=== PATIENT | male | born 1985 | race Two or more races ===

== ENCOUNTER 2019-12-10 15:08 | Emergency (ER) | payer SELFPAY ==
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
[2019-12-10 17:12] VITALS: BP 116/83
[2019-12-10 18:21] LABS: HIV 4th Generation Nonreactive (Nonreactive)
== END 2019-12-10 17:10 | disposition home or self-care (01) ==
LOC: ED 15:08
DX: S83.91XA Sprain of unspecified site of right knee, initial encounter (principal); V49.9XXA Car occupant (driver) (passenger) injured in unspecified traffic accident, initial encounter; Y92.9 Unspecified place or not applicable
CPT/HCPCS: 36415; 87389; 99282